=== PATIENT | female | born 1975 | race Caucasian/White ===

== ENCOUNTER 2017-07-31 21:47 | Emergency (ER) | payer OTHER ==
[~2017-07-31] VITALS: Ht 167.6 cm; Wt 56.7 kg
[~2017-07-31 21:47] MED LIST: CELEXA20 MG PO; CIPRO HC OTIC S10 ML RIGHT EAR; Colace PO; DAY TIME COLD1 EACH PO; FLEXERIL10 MG PO; FLONASE16 G1 BOTH NARES; HYDROCODON-ACE1 EAC7 PO; MOTRIN800 MG PO; MUCUS RELIEF600 M1 PO; Motrin PO; NAPROSYN500 MG PO; NYQUIL D COLD295 ML PO; PEN-VEE K,VEET500 MG PO; PERCOCET 5/31 TABLET PO; Percocet 5/325,Endoc PO; SKELAXIN800 MG PO; TESSALON PERLE100 MG PO; TRAMADOL HCL50 MG PO; ULTRAM50 MG PO; celeXA PO
[2017-07-31 23:10] VITALS: BP 128/80
== END 2017-07-31 23:20 | disposition home or self-care (01) ==
LOC: EME 21:47
DX: F10.14 Alcohol abuse with alcohol-induced mood disorder (principal); F10.129 Alcohol abuse with intoxication, unspecified; Y90.9 Presence of alcohol in blood, level not specified; F32.9 Major depressive disorder, single episode, unspecified
CPT/HCPCS: 80048; 84702; 85025; 99281; 99284; G0480